=== PATIENT | male | born 1995 | race Caucasian/White ===

== ENCOUNTER 2020-04-24 11:53 | Emergency (ER) | payer OTHER ==
[~2020-04-24] VITALS: Ht 175.3 cm; Wt 70.0 kg
[2020-04-24 12:00] VITALS: BP 118/75
--- NOTE | 2020-04-24 14:07 | PHYS DOC ---
Past History Past Medical History: No Pertinent History Past Surgical History: No Surgical History Alcohol Use: Occasionally Adult General Chief Complaint Chief Complaint: EYE PROBLEMS HPI HPI Patient is a [24-year-old male patient presents with right eye discomfort. Patient states he has been working in his garage, he had prolonged piece of lumber, and something he believes had gone up and got in his eye. States he feels like he has gotten it out now however he still has some discomfort, and is able to open his eye completely. States he does have vision, states no loss of vision. States some photophobia. Denies additional complaints Review of Systems Review of Systems Constitutional: Denies fever or chills [] Eyes: Reports right eye discomfort, reports blurry vision to right eye. Denies complaints with left eye HENT: Denies nasal congestion or sore throat [] Neurologic: Denies headache, focal weakness or sensory changes [] All other systems were reviewed and found to be within normal limits, except as documented in this note. Allergies Allergies Allergies Coded Allergies Type Severity Reaction Last Updated Verified No Known Drug Allergies 04/24/20 No Physical Exam Physical Exam Constitutional: Well developed, well nourished, no acute distress, non-toxic appearance. [] HENT: Normocephalic, atraumatic, l, oropharynx moist, no oral exudates, nose normal. [] Eyes: Left eye unremarkable, normal ROM, normal vision. Right eye closed, tearing. [] Neck: Normal range of motion, no tenderness, supple, no stridor. [] Skin: Warm, dry, no erythema, no rash. [] Neurologic: Alert and oriented X 3, normal motor function, normal sensory function, no focal deficits noted. [] Psychologic: Affect normal, judgement normal, mood normal. [] Right eye Eye exam: No foreign bodies noted on eversion of upper and lower eyelids. No foreign body noted to the eye. No erythema noted to. Fluorescein staining with minimal abrasion at 10 o'clock position of right eye. Visual acuity normal Current Patient Data Vital Signs Vital Signs Date Time Temp Pulse Resp B/P (MAP) Pulse Ox O2 Delivery O2 Flow Rate FiO2 04/24/20 12:00 98.3 80 16 118/75 (89) 98 Room Air EKG EKG [] Radiology/Procedures Radiology/Procedures [] Heart Score Risk Factors: Risk Factors: DM, Current or recent (<one month) smoker, HTN, HLP, family history of CAD, obesity. Risk Scores: Risk Factors: DM, Current or recent (<one month) smoker, HTN, HLP, family history of CAD, obesity. Course & Med Decision Making Course & Med Decision Making Pertinent Labs and Imaging studies reviewed. (See chart for details) [] Reviewed findings with patient, with normal visual acuity, normal ROM to eye, extraocular muscles intact. Small corneal abrasion noted to cornea. No further foreign bodies noted will provide short course of antibiotics, patient to follow-up primary care or eye doctor as needed. Dragon Disclaimer Dragon Disclaimer This electronic medical record was generated, in whole or in part, using a voice recognition dictation system. Departure Departure: Impression: Primary Impression: Corneal abrasion Disposition: 01 DC HOME SELF CARE/HOMELESS Condition: GOOD Referrals: PCP,UNKNOWN (PCP) Patient Instructions: Eye - Corneal Abrasion Additional Instructions: As we discussed, do not use contacts in her head for the next 7 days. Do not use additional eyedrops, only use the eye ointment with your prescribing you. Try to protect your eye for the next day or so from light or other painful stimuli. May take Tylenol or ibuprofen as needed for discomfort. Follow-up on days, or with your primary care provider as needed for further concerns. Scripts Polymyxin B Sulf/Trimethoprim (POLYTRIM EYE DROPS) 10 Ml Drops 2 DROP OD Q6HRS for corneal abrasion for 4 Days, #10 ML Prov: DIANA UMANZOR APRN 04/24/20 Problem Qualifiers Primary Impression: Corneal abrasion Encounter type: initial encounter Laterality: right Qualified Codes: S05.01XA - Injury of conjunctiva and corneal abrasion without foreign body, right eye, initial encounter DIANA UMANZOR APRN Apr 24, 2020 14:07
[2020-04-24] MEDS ORDERED: TETRACAINE 0.5% OPHTH SOLUTION 4ML BOTTLE. OD ONE (14:15)
[2020-04-24] MEDS ORDERED: FLUORESCEIN 1MG EYE STRIP. OD ONE (14:15)
[2020-04-24] MEDS ORDERED: POLY10DR OD (14:42)
== END 2020-04-24 14:54 | disposition home or self-care (01) ==
LOC: ER 11:53
DX: S05.01XA Injury of conjunctiva and corneal abrasion without foreign body, right eye, initial encounter (principal); X58.XXXA Exposure to other specified factors, initial encounter; Y93.89 Activity, other specified; Y92.89 Other specified places as the place of occurrence of the external cause; Y99.0 Civilian activity done for income or pay
CPT/HCPCS: 99283